=== PATIENT | female | born 1975 | race African-American/Black ===

== ENCOUNTER 2017-03-03 09:58 | Emergency (ER) | payer OTHER ==
[2017-03-03] MEDS ORDERED: PANTOPRAZOLE SODIUM 40 MG in SODIUM CHLORIDE 100 ML IVPB ONE (10:10)
[2017-03-03] MEDS ORDERED: FAMOTIDINE 20 MG/50 ML IVPB 50 ML IVPB ONE (10:10)
[2017-03-03] MEDS ORDERED: SODIUM CHLORIDE 1,000 ML IV STA (10:10)
[2017-03-03] MEDS ORDERED: MAG HYDROX/AL HYDROX/SIMETH 355 ML ORAL.SUSP PO ONE (10:10)
[2017-03-03] MEDS ORDERED: SUCRALFATE 1 GM TABLET (FP) PO ONE (10:10)
[2017-03-03] MEDS ORDERED: ACETAMINOPHEN 325 MG TABLET (FP) PO ONE (10:10)
--- NOTE | 2017-03-03 10:25 | PDOC ---
History of Present Illness - General Chief Complaint: Pain, Acute Stated Complaint: HEARTBURN MIDSTERNAL PAIN Time Seen by Provider: 03/03/17 10:02 History Source: Patient Exam Limitations: No Limitations - History of Present Illness Initial Comments: 03/03/17 10:55 41 year old female with history of HTN, GERD presents with chest pain since 2: 30 am. The patient reports that she was out in [place] yesterday. Ate a regular sandwich, had a small amount of alcohol, and coffee. Went to bed when she got home. Woke up at 2:30 am and started to feel a chest discomfort, spasm ( midsternal) with no radiation and no SOB. No nausea, vomiting. The patient had tried her famotidine, maalox without improvement in symptoms. Because her father had an MN at the age of 34, she was concerned for MN. Pt reportedly had a resting echocardiogram 1 year ago reportedly negative. Pt is on OCPs for control but denies hx PE or pleuritic component. States pain is worsened with movement. Reports feels like "spasm". Past History - Past Medical History Allergies/Adverse Reactions: Allergies Allergy/AdvReac Type Severity Reaction Status Date / Time No Known Allergies Allergy Unverified 03/03/17 10:00 Home Medications: Ambulatory Orders Amlodipine Besylate 10 mg PO DAILY 03/03/17 Famotidine [Heartburn Prevention] 20 mg PO PRN PRN 03/03/17 Hydrochlorothiazide [Hctz -] 25 mg PO DAILY 03/03/17 Losartan Potassium 25 mg PO DAILY 03/03/17 Norethindrone 0.35 mg PO DAILY 03/03/17 GI Disorders: (GERD) HTN: Yes - Psycho/Social/Smoking Cessation Hx Anxiety: No Suicidal Ideation: No Smoking History: Never smoked Have you smoked in the past 12 months: No Hx Alcohol Use: Yes (SOCIAL) Drug/Substance Use Hx: Yes (MARIJUANA) Substance Use Type: Alcohol, Marijuana Review of Systems - Review of Systems Able to Perform ROS?: Yes Comments:: 03/03/17 11:13 GENERAL/CONSTITUTIONAL: No fever, weakness. HEAD, EYES, EARS, NOSE AND THROAT: No change in vision. No ear pain or discharge. No sore throat. CARDIOVASCULAR: +chest pain. No shortness of breath. RESPIRATORY: No cough, wheezing, or hemoptysis. GASTROINTESTINAL: No abdominal pain, nausea, vomiting, diarrhea, or decreased PO intolerance. GENITOURINARY: No dysuria, frequency, or change in urination. MUSCULOSKELETAL: No joint or muscle swelling or pain. No neck or back pain. SKIN: No rash NEUROLOGIC: No headache, vertigo, loss of consciousness, or change in strength/ sensation. ENDOCRINE: No increased thirst. No abnormal weight change. HEMATOLOGIC/LYMPHATIC: No anemia, easy bleeding, or history of blood clots. ALLERGIC/IMMUNOLOGIC: No hives or skin allergy. *Physical Exam - Vital Signs Last Vital Signs Temp Pulse Resp BP Pulse Ox 98.6 F 100 H 16 165/103 100 03/03/17 09:59 03/03/17 09:59 03/03/17 09:59 03/03/17 09:59 03/03/17 09:59 - Physical Exam Comments: 03/03/17 11:14 GENERAL: Awake, alert, and fully oriented, in no acute distress. HEAD: No signs of trauma EYES: PERRLA, EOMI, sclera anicteric, conjunctiva clear ENT: Auricles normal inspection, hearing grossly normal, nares patent, oropharynx clear without exudates. NECK: Normal ROM, supple, no lymphadenopathy, JVD, or masses LUNGS: Breath sounds equal, clear to auscultation bilaterally. No wheezes, and no crackles HEART: Regular rate and rhythm, normal S1 and S2, no murmurs, rubs or gallops ABDOMEN: Soft, nontender, normoactive bowel sounds. No guarding, no rebound. No masses EXTREMITIES: Normal range of motion, no edema. No clubbing or cyanosis. No cords, erythema, or tenderness NEUROLOGICAL: Cranial nerves II through XII grossly intact. Normal speech, normal gait SKIN: Warm, Dry, normal turgor, no rashes or lesions noted. Heart Score/ECG Review - History History: Slightly suspicious - Electrocardiogram EKG: Normal - Age Age: </= 45 - Risk Factors Risk Factors Heart Score: Yes Hx Hypertension, Yes Positive family hx of cardiac disease, Yes Hx Obesity Based on the list above the patient has:: >/=3 risk factors or Hx atherosclerotic disease - Troponin Troponin: >/=3x normal limit - Score Heart Score - Total: 4 #1 ECG reviewed & interpreted by me at: 10:05 03/03/17 10:23 NSR 94, no std/janeth, TWI III, normal axis, normal intervals, QTC 467 msec #2 ECG reviewed & interpreted by me at: 12:50 03/03/17 12:49 NSR 91, TWI III, submm STD V3, QTC 467 msec ED Treatment Course - LABORATORY CBC & Chemistry Diagram: 03/03/17 10:45 03/03/17 10:45 - RADIOLOGY Radiology Studies Ordered: Category Date Time Status CHEST X-RAY PORTABLE* [RAD] Stat Radiology 03/03/17 10:10 Ordered Medical Decision Making - Critical Care Time Total Critical Care Time (minutes): 45 Critical Care Statement: The care of this patient involved high complexity decision making to prevent further life threatening deterioration of the patient 's condition and/or to evalute & treat vital organ system(s) failure or risk of failure. - Medical Decision Making 03/03/17 11:15 Vital Signs Temp Pulse Resp BP Pulse Ox 98.6 F 100 H 16 146/107 100 03/03/17 09:59 03/03/17 09:59 03/03/17 09:59 03/03/17 10:32 03/03/17 09:59 41 year old female presents with chest discomfort. I suspect that she may be having gastritis and esophageal spasm. However, she has significant cardiac family history with father with MN and she has chest discomfort. Though the ECG is reassuring, the patient will need to be considered for MN and ACS. Trial GERD medications. Consult cardiology. Low threshold for admission for provocative cardiac testing. 03/03/17 12:18 CBC, BMP 03/03/17 10:45 03/03/17 10:45 CMP Sodium 138 mmol/L (136-145) 03/03/17 10:45 Potassium 3.7 mmol/L (3.5-5.1) 03/03/17 10:45 Chloride 98 mmol/L (98-107) 03/03/17 10:45 Carbon Dioxide 29 mmol/L (22-28) H 03/03/17 10:45 Anion Gap 11 (8-16) 03/03/17 10:45 BUN 8 mg/dl (7-18) 03/03/17 10:45 Creatinine 0.8 mg/dl (0.6-1.3) 03/03/17 10:45 Creat Clearance w eGFR > 60 (>60) 03/03/17 10:45 Random Glucose 172 mg/dl (74-106) H 03/03/17 10:45 Calcium 9.0 mg/dl (8.4-10.2) 03/03/17 10:45 Total Bilirubin 1.0 mg/dl (0.2-1.0) 03/03/17 10:45 AST 90 U/L (10-42) H 03/03/17 10:45 ALT 65 U/L (10-40) H 03/03/17 10:45 Alkaline Phosphatase 82 U/L (32-92) 03/03/17 10:45 Creatine Kinase 944 IU/L (26-140) H 03/03/17 10:45 CK-MB (CK-2) 140.8 ng/ml (0.3-4.0) H 03/03/17 10:45 Troponin I 7.52 ng/ml (0.03-0.50) H* 03/03/17 10:45 Total Protein 8.0 g/dl (6.4-8.3) 03/03/17 10:45 Albumin 4.0 g/dl (3.5-5.0) 03/03/17 10:45 Lipase 24 U/L (22-51) 03/03/17 10:45 Troponin is 7.52. This is NSTEMI. ASA 324, Heparin bolus and gtt ordered. 600 plavix ordered. Morphine ordered. Pt currently stable but with chest pain. Will give medications to help pain. Case discussed with head knitting machine fixer DR. Francis Roy. He is setting up for patient for transfer to [facility] for cardiac cath. Pt accepted by DR. Stephenson (cards) at [facility]. *DC/Admit/Observation/Transfer Diagnosis at time of Disposition: NSTEMI (non-ST elevated myocardial infarction) - Discharge Dispostion Disposition: TRANSFER ACUTE CARE/OTHER HOSP Condition at time of disposition: Stable - Transfer to Acute Care Facility Accepting Physician:: Dr. Stephenson Transfer comment: 03/03/17 12:22 [facility]
[2017-03-03] MEDS ORDERED: ACETAMINOPHEN 325 MG TABLET (FP) ONE (10:31)
[2017-03-03] MEDS ORDERED: SUCRALFATE 1 GM/10 ML UNIT DOSE CUPS ONE (10:31)
[2017-03-03] MEDS ORDERED: MAG HYDROX/AL HYDROX/SIMETH 30 ML UNIT-DOSE CUP ONE (10:31)
[2017-03-03 10:32] VITALS: BMI 38.3
[2017-03-03] MEDS ORDERED: PANTOPRAZOLE SODIUM 40 MG VIAL ONE (10:32)
[2017-03-03 11:01] LABS: BASOPHIL 0.5 % (0-2.0); EOSINOPHIL 0.4 % (0-4.5); MCH 31.4 pg (25.7-33.7); MCHC 34.5 g/dl (32.0-36.0); MEAN PLT VOLUME 9.1 fl (7.5-11.1); NEUTROPHILS 73.5 % (42.8-82.8); PLATELET COUNT 319 K/MM3 (134-434); RDW 12.1 % (11.6-15.6)
[2017-03-03 11:12] LABS: ALK PHOS 82 U/L (32-92); ANION GAP 11 (8-16); CO2 29 mmol/L (22-28); CREATININE 0.8 mg/dl (0.6-1.3); GLUCOSE,RANDOM 172 mg/dl (74-106); SGOT/AST 90 U/L (10-42); SGPT/ALT 65 U/L (10-40)
[2017-03-03 11:53] LABS: CK MB 140.8 ng/ml (0.3-4.0)
[2017-03-03 11:55] LABS: TROPONIN I (DFP) 7.52 ng/ml (0.03-0.50)
[2017-03-03] MEDS ORDERED: HEPARIN NA (PORCINE) 5,000 UNITS/ML 1ML VIAL ONE (11:57)
[2017-03-03] MEDS ORDERED: ASPIRIN 81 MG CHEWABLE TABLETS ONE (11:57)
[2017-03-03] MEDS ORDERED: morphine CARPU-JECT 4 MG/1 ML DISP.SYRIN ONE (11:57)
[2017-03-03] MEDS ORDERED: HEPARIN INFUSION - 500 ML IVPB ONE (11:57)
[2017-03-03] MEDS ORDERED: HEPARIN NA (PORCINE) 5,000 UNITS/ML 1ML VIAL IVPUSH PRN ×2 (12:02)
[2017-03-03] MEDS ORDERED: HEPARIN NA (PORCINE) 5,000 UNITS/ML 1ML VIAL IVPUSH ONE (12:02)
[2017-03-03] MEDS ORDERED: ASPIRIN 81 MG CHEWABLE TABLETS PO ONE (12:02)
[2017-03-03] MEDS ORDERED: CLOPIDOGREL BISULFATE 300 MG TABLET ONE (12:08)
[2017-03-03] MEDS: morphine CARPU-JECT 4 MG/1 ML DISP.SYRIN IVPUSH ONE (12:10)
[2017-03-03] MEDS ORDERED: HEPARIN - 25,000 UNIT in SODIUM CHLORIDE 495 ML IV SCH (12:15)
[2017-03-03] MEDS ORDERED: CLOPIDOGREL BISULFATE 300 MG TABLET PO ONE (12:17)
[2017-03-03] MEDS ORDERED: ATORVASTATIN CA 80 MG TABLET (FP) PO ONE (12:21)
[2017-03-03] MEDS ORDERED: ATORVASTATIN CA 80 MG TABLET (FP) ONE (12:28)
[2017-03-03 12:50] LABS: ACTIVATED PTT 35.2 SECONDS (24.0-38.9)
[2017-03-03 12:54] LABS: INR 1.18 (0.82-1.09); PROTHROMBIN TIME (PATIENT) 13.2 SEC (10.2-13.0)
[2017-03-03 13:12] VITALS: BP 140/109; PULSE 92
[2017-03-03 13:21] VITALS: TEMP 98.5
--- NOTE | 2017-03-03 14:44 | EKG ---
Test Reason : Blood Pressure : / mmHG Vent. Rate : 076 BPM Atrial Rate : 076 BPM P-R Int : 192 ms QRS Dur : 090 ms QT Int : 380 ms P-R-T Axes : 061 011 039 degrees QTc Int : 427 ms NORMAL SINUS RHYTHM POSSIBLE LEFT ATRIAL ENLARGEMENT ST SEGMENT ABNORMALITY WITH SUBTLE ELEVATION IN INFERIOR LEAD - MYOCARDIAL INFARCTION CLINICAL CORRELATION IS RECOMMENDED ABNORMAL ECG NO PREVIOUS ECGS AVAILABLE Confirmed by BETI FARNSWORTH MD ([id number]) on 03/03/2017 2:44:50 PM Referred By: VIJI MCCARTHY Confirmed By:BETI FARNSWORTH MD
--- NOTE | 2017-03-04 08:31 | EKG ---
Test Reason : Blood Pressure : / mmHG Vent. Rate : 091 BPM Atrial Rate : 091 BPM P-R Int : 190 ms QRS Dur : 088 ms QT Int : 380 ms P-R-T Axes : 068 005 033 degrees QTc Int : 467 ms NORMAL SINUS RHYTHM NONSPECIFIC ST AND T WAVE ABNORMALITY ABNORMAL ECG WHEN COMPARED WITH ECG OF 03-MAR-2017 10:00, NONSPECIFIC T WAVE ABNORMALITY NOW EVIDENT IN LATERAL LEADS Confirmed by MAGALI ANNA MD ([id number]) on 03/04/2017 8:31:08 AM Referred By: VIJI MCCARTHY Confirmed By:MAGALI ANNA MD
== END 2017-03-03 13:51 | disposition short-term general hospital (02) ==
LOC: FER 09:58
PROC: 3E033NZ Introduction of Analgesics, Hypnotics, Sedatives into Peripheral Vein, Percutaneous Approach (ICD-10-PCS; principal; 2017-03-03)
PROC: 3E033GC Introduction of Other Therapeutic Substance into Peripheral Vein, Percutaneous Approach (ICD-10-PCS; 2017-03-03)
PROC: 3E0337Z Introduction of Electrolytic and Water Balance Substance into Peripheral Vein, Percutaneous Approach (ICD-10-PCS; 2017-03-03)
DX: I21.4 Non-ST elevation (NSTEMI) myocardial infarction (principal); I10 Essential (primary) hypertension; K21.9 Gastro-esophageal reflux disease without esophagitis
CPT/HCPCS: 36415; 71010-TC; 80053; 82550; 82553; 83690; 84484; 84703; 85025; 85610; 85730; 93005; 93010; 99285-25; J1644

== ENCOUNTER 2021-04-29 13:23 | Day surgery (SDC) | payer OTHER ==
[2021-04-29 14:03] VITALS: BMI 36.8
[2021-04-29] MEDS ORDERED: BUPIVACAINE HCL 100 ML ONE (14:34)
[2021-04-29] MEDS ORDERED: MORPHINE SULFATE 10 MG/1 ML *VIAL ONE (14:47)
[2021-04-29] MEDS ORDERED: PROPOFOL 20 ML ONE (15:00)
[2021-04-29] MEDS ORDERED: MIDAZOLAM HCL 2 MG/2 ML SINGLE DOSE VIAL ONE (15:01)
[2021-04-29] MEDS ORDERED: ONDANSETRON 4 MG/2 ML VIAL IVPUSH PRN (15:18)
[2021-04-29] MEDS ORDERED: oxyCODONE HCL 5 MG TABLET PO PRN (15:18)
[2021-04-29] MEDS ORDERED: ACETAMINOPHEN 1000 MG/100 ML VIAL (NON FORMULARY) IVPB ONE (15:19)
[2021-04-29] MEDS ORDERED: LACTATED RINGERS SOLUTION 1,000 ML IV SCH (15:30)
[2021-04-29] MEDS ORDERED: ACETAMINOPHEN INJECTION 100 ML IVPB ONE (16:24)
[2021-04-29] MEDS ORDERED: ONDANSETRON 4 MG/2 ML VIAL ONE (16:57)
[2021-04-29 17:33] VITALS: TEMP 97.2
[2021-04-29 18:04] VITALS: BP 125/68; PULSE 68
== END 2021-04-29 17:50 | disposition home or self-care (01) ==
LOC: FASU 13:23
PROVIDERS: ATTEND Orthopaedic Surgery
PROC: 0SBC4ZZ Excision of Right Knee Joint, Percutaneous Endoscopic Approach (ICD-10-PCS; 2021-04-29)
PROC: 0SQC4ZZ Repair Right Knee Joint, Percutaneous Endoscopic Approach (ICD-10-PCS; 2021-04-29)
PROC: 0SBC4ZZ Excision of Right Knee Joint, Percutaneous Endoscopic Approach (ICD-10-PCS; 2021-04-29)
PROC: 0SBC4ZZ Excision of Right Knee Joint, Percutaneous Endoscopic Approach (ICD-10-PCS; 2021-04-29)
PROC: 0SBC4ZZ Excision of Right Knee Joint, Percutaneous Endoscopic Approach (ICD-10-PCS; principal; 2021-04-29 15:00)
DX: M25.561 Pain in right knee (principal); S83.241A Other tear of medial meniscus, current injury, right knee, initial encounter; S83.281A Other tear of lateral meniscus, current injury, right knee, initial encounter; M93.261 Osteochondritis dissecans, right knee; M25.861 Other specified joint disorders, right knee; M23.41 Loose body in knee, right knee; M94.261 Chondromalacia, right knee; M67.261 Synovial hypertrophy, not elsewhere classified, right lower leg; M24.10 Other articular cartilage disorders, unspecified site; X58.XXXA Exposure to other specified factors, initial encounter; Y93.9 Activity, unspecified; Y92.9 Unspecified place or not applicable
CPT/HCPCS: 29876; 29879; 29880; G0289; 82962; 84703; 94760; J0131

== ENCOUNTER 2021-08-05 07:42 | Day surgery (SDC) | payer OTHER ==
[2021-08-05 08:06] VITALS: BMI 36.4
[2021-08-05] MEDS ORDERED: MIDAZOLAM HCL 2 MG/2 ML SINGLE DOSE VIAL ONE ×3 (08:45→11:00)
[2021-08-05] MEDS ORDERED: PROPOFOL 20 ML ONE ×3 (08:45→10:38)
[2021-08-05] MEDS ORDERED: BUPIVACAINE HCL 100 ML ONE (09:41)
[2021-08-05] MEDS ORDERED: MORPHINE SULFATE 10 MG/1 ML *VIAL ONE (09:49)
[2021-08-05] MEDS ORDERED: SUCCINYLCHOLINE CHLORIDE 200 MG/10 ML SYRINGE ONE (10:05)
[2021-08-05] MEDS ORDERED: NEOSTIGMINE METHYLSULFATE 0.5 MG/1 ML - 10 ML MDV ONE (10:54)
[2021-08-05] MEDS ORDERED: ONDANSETRON 4 MG/2 ML VIAL IVPUSH PRN (11:26)
[2021-08-05] MEDS ORDERED: ACETAMINOPHEN 1000 MG/100 ML VIAL IVPB ONE (11:26)
[2021-08-05] MEDS ORDERED: oxyCODONE HCL 5 MG TABLET PO PRN (11:26)
[2021-08-05] MEDS ORDERED: ACETAMINOPHEN INJECTION 100 ML IVPB ONE (11:42)
[2021-08-05 12:41] VITALS: TEMP 97
[2021-08-05 14:06] VITALS: BP 128/78; PULSE 86
== END 2021-08-05 14:05 | disposition home or self-care (01) ==
LOC: FASU 07:42
PROVIDERS: ATTEND Orthopaedic Surgery
PROC: 0SBD4ZZ Excision of Left Knee Joint, Percutaneous Endoscopic Approach (ICD-10-PCS; 2021-08-05)
PROC: 0SBD4ZZ Excision of Left Knee Joint, Percutaneous Endoscopic Approach (ICD-10-PCS; 2021-08-05)
PROC: 0SBD4ZZ Excision of Left Knee Joint, Percutaneous Endoscopic Approach (ICD-10-PCS; 2021-08-05)
PROC: 0SBD4ZZ Excision of Left Knee Joint, Percutaneous Endoscopic Approach (ICD-10-PCS; 2021-08-05)
PROC: 0SBD4ZZ Excision of Left Knee Joint, Percutaneous Endoscopic Approach (ICD-10-PCS; principal; 2021-08-05 10:23)
DX: M25.662 Stiffness of left knee, not elsewhere classified (principal); S83.282A Other tear of lateral meniscus, current injury, left knee, initial encounter; S83.242A Other tear of medial meniscus, current injury, left knee, initial encounter; M25.862 Other specified joint disorders, left knee; M94.262 Chondromalacia, left knee; M93.262 Osteochondritis dissecans, left knee; M67.262 Synovial hypertrophy, not elsewhere classified, left lower leg; M67.52 Plica syndrome, left knee; X58.XXXA Exposure to other specified factors, initial encounter; Y93.9 Activity, unspecified; Y92.9 Unspecified place or not applicable
CPT/HCPCS: 82962; 84703; 94760; J0131

== ENCOUNTER 2024-07-16 12:33 | Emergency (ER) | payer OTHER ==
[2024-07-16 13:14] VITALS: BP 143/90; PULSE 77; RESP 20; TEMP 98.2; BMI 36.8
== END 2024-07-16 15:43 | disposition home or self-care (01) ==
LOC: FER 12:33
DX: M25.561 Pain in right knee (principal)
CPT/HCPCS: 73562-TC-RT-FY; 93971-TC; 99284-25